=== PATIENT | female | born 1955 | race Caucasian/White ===

== ENCOUNTER → 2024-02-17 11:12 | Outpatient (CLI) | payer MEDICARE, SELFPAY ==
[2024-02-17 13:17] LABS: Add Manual Diff / Slide Review NO; Basophils Absolute Auto 100 /uL (0-100); Basophils Percent Auto 0.7 % (0-2); Eosinophils Absolute Auto 200 /uL (0-450); Eosinophils Percent Auto 1.7 % (2-4); Hematocrit 44.9 % (36-46); Lymphocytes Absolute Auto 3200 /uL (1100-4500); Lymphocytes Percent Auto 28.6 % (25-40); Mean Corpuscular HGB Conc 33.4 % (30-36); Mean Corpuscular Hemoglobin 29.1 PG (26-34); Mean Corpuscular Volume 87.2 fL (80-100); Monocytes Absolute Auto 700 /uL (0-900); Neutrophils Absolute Auto 7000 /uL (1500-7000); Platelet Count 498 X10^3/uL (150-400); Red Blood Cell Count 5.15 X10^6/uL (4.0-5.2); White Blood Cell Count 11.1 X10^3/uL (4.5-11.0)
[2024-02-17 13:22] LABS: Hemoglobin A1C% w Est Avg Glu 7.4 % (4.0-6.0)
[2024-02-17 13:42] LABS: Alanine Aminotransferase 19 IU/L (<35); Albumin 4.5 g/dL (3.5-5.0); Albumin Globulin Ratio 1.4 (1.0-2.8); Alkaline Phosphatase 79 U/L (38-126); Aspartate Aminotransferase 23 IU/L (14-36); BUN Creatinine Ratio 23.9 (6-22); Bilirubin Total 0.6 mg/dL (0.2-1.3); Blood Urea Nitrogen 16 mg/dL (7-17); Calcium 9.7 mg/dL (8.4-10.2); Carbon Dioxide 24 mmol/L (22-32); Chloride 104 mmol/L (98-107); Cholesterol 269 mg/dL (140-199); Estimated Glomerular Filt Rate > 60 mL/min (>60); Globulin 3.3 g/dL (1.7-4.1); Glucose 181 mg/dL (80-110); HDL Cholesterol 37 mg/dL (40-60); HEMOLYSIS < 15 (0-50); LDL Cholesterol Calculated 180 mg/dL (<100); Sodium 139 mmol/L (137-145); Total Protein 7.8 g/dL (6.3-8.2); Triglycerides 260 mg/dL (35-150)
[2024-02-17 14:02] LABS: Free T4, Direct Thyroxine 1.33 ng/dL (0.78-2.19)
[2024-02-17 14:16] LABS: Thyroid Stimulating Hormone 0.386 uIU/mL (0.47-4.68)
[2024-02-17 15:45] LABS: Microalbumin Urine Random 6.3 mg/dL (0-1.6)
[2024-02-17 15:53] LABS: Creatinine Urine Random 120.18 mg/dL
== END ==
LOC: LAB 11:17
PROVIDERS: Referring Provider Nurse Practitioner Family; Visit Provider Nurse Practitioner Family
DX: E11.9 Type 2 diabetes mellitus without complications (principal); I10 Essential (primary) hypertension; E05.90 Thyrotoxicosis, unspecified without thyrotoxic crisis or storm; E78.5 Hyperlipidemia, unspecified
CPT/HCPCS: 36415; 80053; 80061; 82043; 82570; 83036; 84439; 84443; 85025

== ENCOUNTER 2024-03-13 13:43 | Emergency (ER) | payer MEDICARE, SELFPAY ==
[2024-03-13 13:49] VITALS: BMI 25.7
[2024-03-13 13:56] VITALS: BP 186/84; PULSE 85; RESP 16; TEMP 37; O2SAT 98
--- NOTE | 2024-03-13 14:25 | PC.NURSE ---
Ring cutter used to removed silver ring that is on patient's R ring finger. Ring was removed with no complications. Patient reports immediate improvement in discomfort. Patient continues to appy ice to injured/swollen area.
--- NOTE | 2024-03-13 14:31 | ED.UPPEXIN ---
HPI - Extremity Injury (Upper) <Francesca Bo PA-C - Last Filed: 03/13/24 14:51> General Chief Complaint: Extremity Injury, Upper Stated Complaint: Ring finger swollen and red Time Seen by Provider: 03/13/24 14:27 Source: patient Mode of arrival: Family Vehicle History of Present Illness HPI narrative: Patient is a very pleasant 68-year-old female presents to the emergency room department today with a ring that is stuck on her right ring finger. The patient was out walking her dog, the dog saw a cat, and lunged at the cat , the dog's leash got caught around her right ring finger. This happened several days ago, the patient has had increasing swelling to the right ring finger. She is unable to get the ring that is on that finger off now. She has bruising, and soft tissue swelling. She initially went to the fire department to see if they were able to cut the ring off for her. Unfortunately when she went to the fire department the ambulance was out on a call, the ring finger cutter was on the ambulance and so they were unable to help her. They suggested that she seek help in the emergency room department. She has no other physical complaints except she would like the ring cut off her right ring finger. Related Data Allergies Allergy/AdvReac Type Severity Reaction Status Date / Time Penicillins [PENICILLINS] Allergy Unknown Verified 03/13/24 13:52 Review of Systems <Francesca Bo PA-C - Last Filed: 03/13/24 14:51> Review of Systems Narrative: Negative except as above Musculoskeletal Comments: Right ring swelling, needs to have the ring cut off her right ring finger. Patient History <Francesca Bo PA-C - Last Filed: 03/13/24 14:51> Social History Smoking Status: Never smoker Smoking Status: Never smoker Substance Use Type: does not use Exam <Francesca Bo PA-C - Last Filed: 03/13/24 14:51> Initial Vital Signs Initial Vital Signs: Vital Signs Temperature 98.6 F 03/13/24 13:56 Pulse Rate 85 03/13/24 13:56 Respiratory Rate 16 03/13/24 13:56 Blood Pressure 186/84 H 03/13/24 13:56 Pulse Oximetry 98 03/13/24 13:56 Oxygen Delivery Method Room Air 03/13/24 13:56 Reviewed Const General: cooperative, healthy appearing, comfortable, well developed, well groomed, No acute distress and No in distress Nutritional Appearance: average body habitus Eyes General: Yes appearance normal, both eyes and all related structures Pupils: PERRL EOM: EOM intact bilaterally Skin Other: Right ring finger is swollen, ecchymosis, cap refill is preserved, pulses are present right hand. Neuro General: patient alert, patient awake, patient oriented x3, oriented and gait normal Cranial Nerves: CN's II-XI intact bilaterally Cognition: normal cognition Speech: speech normal Gait: normal gait Motor: muscle tone normal throughout Extrem Other: Bilateral lower extremities, left upper extremities normal range of motion, strength, pulses, cap refill preserved. Right upper extremity soft tissue swelling, ecchymosis is noted to the right ring finger. Limited range of motion due to discomfort and pain. Patient is offered an x-ray of the ring finger. She has refused. States she has an ortho appointment on of this coming week states she will ask them to evaluate her finger at the time that she is therefore her other Ortho physical complaints. <Cuauhtemoc Martel DO - Last Filed: 03/13/24 14:56> Initial Vital Signs Initial Vital Signs: Vital Signs Temperature 98.6 F 03/13/24 13:56 Pulse Rate 85 03/13/24 13:56 Respiratory Rate 16 03/13/24 13:56 Blood Pressure 186/84 H 03/13/24 13:56 Pulse Oximetry 98 03/13/24 13:56 Oxygen Delivery Method Room Air 03/13/24 13:56 Procedures <Francesca Bo PA-C - Last Filed: 03/13/24 14:51> [facility] [place] Procedure Name of Procedure: Ring removal Location: Right Technique/Description of procedure performed: The nurses remove her ring off of her right ring finger. The ring was removed prior to me seeing her. Course <Francesca Bo PA-C - Last Filed: 03/13/24 14:51> Vital Signs Vital signs: Vital Signs - 8 hr 03/13/24 13:56 Temperature 98.6 F Pulse Rate 85 Respiratory Rate 16 Blood Pressure 186/84 H Pulse Oximetry 98 Oxygen Delivery Method Room Air <Cuauhtemoc Martel DO - Last Filed: 03/13/24 14:56> Vital Signs Vital signs: Vital Signs - 8 hr 03/13/24 13:56 Temperature 98.6 F Pulse Rate 85 Respiratory Rate 16 Blood Pressure 186/84 H Pulse Oximetry 98 Oxygen Delivery Method Room Air MDM - Extremity Injury (Upper) <Francesca Bo PA-C - Last Filed: 03/13/24 14:51> MDM Narrative Medical decision making narrative: Pleasant 68-year-old female here in the emergency department requesting assistance removing a ring on her right ring finger. Patient was out walking her dog, the dog was startled by a Cat, lunged, the leash became wrapped around the patient's hand, her right ring finger got caught in the leash this happened several days ago. She now has soft tissue swelling to the right ring finger, unable to get the ring off of her finger. Initially went to the fire department they were unable to help her. Presents to the emergency department for removal of the ring on her right ring finger. Ring is removed given to the patient Offer an x-ray due to limited range of motion patient refused Right ring finger is splinted with a padded splint and secured with [place]an Patient is going to follow up with her ortho appointment on ask them to look at her finger Differential diagnosis; right ring finger contusion, ecchymosis, swelling, removal of ring. Discharge Plan Departure Patient Disposition: Home Clinical Impression: Localized swelling of finger of right hand Contusion of finger of right hand Qualifiers: Encounter type: initial encounter Finger: ring finger Damage to nail status: without damage Qualified Code(s): S60.041A - Contusion of right ring finger without damage to nail, initial encounter Activity Restrictions/Additional Instructions: Ice of the right ring finger as much as you can tolerate it. Follow up with her ortho appointment that you have this coming . Splint for comfort. Ibuprofen and Tylenol as needed. Referrals: Miscellaneous,[facility] [Primary Care Provider] - Stand Alone Forms: Patient Portal/API ED Sign-out <Cuauhtemoc Martel DO - Last Filed: 03/13/24 14:56> Cosign ED Attending Cosignature Attestation: Dr Martel Co-Sign Statement: I was available for consultation during this patient's emergency department visit. This chart is signed by myself for administrative purposes only. I did not have direct contact with this patient during this visit. They were seen independently by the APC.
== END 2024-03-13 14:51 | disposition home or self-care (01) ==
PROVIDERS: Emergency Provider Physician Assistant
DX: S60.041A Contusion of right ring finger without damage to nail, initial encounter (principal); W49.09XA Other specified item causing external constriction, initial encounter
CPT/HCPCS: 29130; 99281; 99282